=== PATIENT | male | born 1960 | race Caucasian/White ===

== ENCOUNTER → 2022-05-29 | Outpatient (CLI) | payer MEDICARE | LOC: KOH-I 05-24 09:00 | DX: M51.16 Intervertebral disc disorders with radiculopathy, lumbar region (principal); M21.371 Foot drop, right foot | CPT/HCPCS: 72131 ==

== ENCOUNTER → 2022-06-06 | Outpatient (CLI) | payer MEDICARE ==
[~2022-06-06] MED LIST: CRESTOR 10 MG T10 MG PO; LISINOPRIL5 MG PO; TIZANIDINE HCL4 MG PO; TYLENOL 8 HOUR650 MG PO
[2022-06-06 11:15] LABS: HEMOGLOBIN 17.6 gm/dl (14.0-17.5); RED BLOOD COUNT 5.14 M/UL (4.20-5.50); WHITE BLOOD COUNT 6.8 K/UL (4.5-11.0)
[2022-06-06 11:37] LABS: BUN/CREATININE RATIO 15 (0-10)
== END ==
LOC: OPSV2 10:00
PROVIDERS: Orthopaedic Surgery
DX: Z01.818 Encounter for other preprocedural examination (principal); M21.371 Foot drop, right foot; M48.061 Spinal stenosis, lumbar region without neurogenic claudication; M54.16 Radiculopathy, lumbar region
CPT/HCPCS: 36415; 71046; 80048; 85025; 93005

== ENCOUNTER 2022-06-19 05:22 | Inpatient (IN) | payer MEDICARE ==
[~2022-06-19] VITALS: Ht 165.1 cm; Wt 83.0 kg
[2022-06-19 06:34] LABS: BUN/CREATININE RATIO 10 (0-10)
[2022-06-19] MEDS ORDERED: MELOXICAM7.5 MG PO (06:35)
[2022-06-19 17:00] LABS: HEMOGLOBIN 14.1 gm/dl (14.0-17.5); RED BLOOD COUNT 4.17 M/UL (4.20-5.50); WHITE BLOOD COUNT 12.2 K/UL (4.5-11.0)
[2022-06-19 17:25] LABS: BUN/CREATININE RATIO 11 (0-10)
[2022-06-20 05:10] LABS: WHITE BLOOD COUNT 13.6 K/UL (4.5-11.0)
[2022-06-20 05:15] LABS: HEMOGLOBIN 10.5 gm/dl (14.0-17.5); RED BLOOD COUNT 3.14 M/UL (4.20-5.50)
[2022-06-20 05:26] LABS: BUN/CREATININE RATIO 16 (0-10)
[2022-06-21 04:23] LABS: HEMOGLOBIN 9.7 gm/dl (14.0-17.5); RED BLOOD COUNT 2.9 M/UL (4.20-5.50)
[2022-06-21 04:31] LABS: WHITE BLOOD COUNT 9.5 K/UL (4.5-11.0)
[2022-06-21 04:50] LABS: BUN/CREATININE RATIO 15 (0-10)
[2022-06-22 04:51] LABS: HEMOGLOBIN 10.2 gm/dl (14.0-17.5); RED BLOOD COUNT 3.03 M/UL (4.20-5.50); WHITE BLOOD COUNT 9.1 K/UL (4.5-11.0)
[2022-06-22 05:46] LABS: BUN/CREATININE RATIO 15 (0-10)
[2022-06-23 04:35] LABS: HEMOGLOBIN 10.1 gm/dl (14.0-17.5); WHITE BLOOD COUNT 7.6 K/UL (4.5-11.0)
[2022-06-23 04:59] LABS: BUN/CREATININE RATIO 15 (0-10)
[2022-06-24 05:21] LABS: HEMOGLOBIN 10.4 gm/dl (14.0-17.5); RED BLOOD COUNT 3.11 M/UL (4.20-5.50); WHITE BLOOD COUNT 7.6 K/UL (4.5-11.0)
[2022-06-24 05:55] LABS: BUN/CREATININE RATIO 15 (0-10)
[2022-06-24] MEDS ORDERED: ELIQUIS 5 MG TAB5 MG PO (07:18)
--- NOTE | 2022-06-24 08:13 | NUR ---
PATIENT EDUCATED ON DISCHARGE PACKET THAT WILL BE SENT HOME WITH THE PATIENT. THE PATIENT VERABLIZES UNDERSTANDING OF SITE CARE, FOLLOW UP APPOINTMENTS AND THE NEW MEDICATION HE WILL BE TAKING. PATIENT WILL BE TRANSPORTED HOME WITH FAMILY IN FAMILY VEHICLE AND HE VERBALIZES READINESS TO DISCHARGE. IV HAS BEEN REMOVED, CURRENT INCISION DRESSIONS ARE CLEAN, DRY AND INTACT. THE PATIENT HAS STABLE VITALS AT TIME OF DISCHARGE. PHYSICIAN AWARE OF DISCHARGE.
== END 2022-06-24 10:09 | disposition home or self-care (01) | DRG 453 ==
LOC: OR 05:22 → CCU 17:35
PROVIDERS: Internal Medicine; ADMIT Orthopaedic Surgery
PROC: 0SG3071 Fusion of Lumbosacral Joint with Autologous Tissue Substitute, Posterior Approach, Posterior Column, Open Approach (ICD-10-PCS; 2022-06-19)
PROC: 0SB20ZZ Excision of Lumbar Vertebral Disc, Open Approach (ICD-10-PCS; 2022-06-19)
PROC: 01NB0ZZ Release Lumbar Nerve, Open Approach (ICD-10-PCS; 2022-06-19)
PROC: 01NR0ZZ Release Sacral Nerve, Open Approach (ICD-10-PCS; 2022-06-19)
PROC: 4A11X4G Monitoring of Peripheral Nervous Electrical Activity, Intraoperative, External Approach (ICD-10-PCS; 2022-06-19)
PROC: 0SG10AJ Fusion of 2 or more Lumbar Vertebral Joints with Interbody Fusion Device, Posterior Approach, Anterior Column, Open Approach (ICD-10-PCS; principal; 2022-06-19 07:30)
PROC: 0SG0071 Fusion of Lumbar Vertebral Joint with Autologous Tissue Substitute, Posterior Approach, Posterior Column, Open Approach (ICD-10-PCS; 2022-06-19 07:30)
PROC: B24BZZZ Ultrasonography of Heart with Aorta (ICD-10-PCS; 2022-06-22)
DX: M48.061 Spinal stenosis, lumbar region without neurogenic claudication (principal); I26.99 Other pulmonary embolism without acute cor pulmonale; D62 Acute posthemorrhagic anemia; Z20.822 Contact with and (suspected) exposure to COVID-19; M47.896 Other spondylosis, lumbar region; M21.371 Foot drop, right foot; M54.16 Radiculopathy, lumbar region; I10 Essential (primary) hypertension; E78.5 Hyperlipidemia, unspecified; E86.0 Dehydration; I08.1 Rheumatic disorders of both mitral and tricuspid valves; M43.28 Fusion of spine, sacral and sacrococcygeal region; Z82.49 Family history of ischemic heart disease and other diseases of the circulatory system
CPT/HCPCS: ECHO; 36415; 72100; 72110; 76000; 80048; 81001; 83540; 83550; 83735; 83880; 84100; 85027; 85610; 85730; 86850; 86900; 86901; 87040; 87081; 93005; 93306; 93970; 97116-GP-CQ; 97161; 97166; 97535; C1713; C1762; C1776; C1781; J0690; J1100; J1170; J1200; J1650; J1885; J2250; J2370; J2405; J2704; J3010; J3370; J3475; J7040; Q9967